=== PATIENT | female | born 1990 ===

== ENCOUNTER 2021-10-28 13:42 | Emergency (ER) | payer MEDICAID ==
[2021-10-28] MEDS: Ketorolac 60 MG/2 ML SDV IM ONE (13:43)
== END 2021-10-28 15:36 | disposition home or self-care (01) ==
LOC: LB.ED 13:42
DX: N30.01 Acute cystitis with hematuria (principal); Z88.0 Allergy status to penicillin; Z91.030 Bee allergy status; Z72.0 Tobacco use
CPT/HCPCS: 81001; 96372; 99283; J1885